=== PATIENT | female | born 1980 | race Caucasian/White ===

== ENCOUNTER → 2023-04-04 | Outpatient (CLI) | payer OTHER, SELFPAY ==
--- NOTE | 2023-04-04 07:25 | CT_ITS ---
STUDY: CTA ABDOMEN AND PELVIS WITH CONTRAST REASON FOR EXAM: Female, 43 years old. MAY-THURNER SYNDROME. History of varicose veins. RADIATION DOSAGE (If Supplied By Facility): CTDIvol = ( 15.16 ) mGy, DLP = ( 830.79 ) mGycm TECHNIQUE: Transaxial images were obtained from the dome of the diaphragm to the symphysis pubis without oral contrast. IV 100mL Isovue-370 was administered. Sagittal and coronal images were reconstructed. Individualized dose optimization techniques were used for this CT. COMPARISON: Comparison is made with prior study June 03, 2014. FINDINGS: The visualized lung bases are unremarkable. The visualized portions of the heart are within normal limits. 1 cm cyst in the inferior lateral aspect of the right lobe of the liver. Vascular coils are seen in the midportion of the right lobe of the liver. There are multiple small gallstones. There is moderate splenomegaly. Varices are seen in the region of the splenic Normal pancreas. Normal bilateral adrenal glands. Normal right kidney. Normal left kidney. Normal visualized stomach. Normal small intestine. Moderate amount of fecal material is seen in the colon. The appendix is visualized and appears normal. Normal abdominal aorta. Findings suggestive of a compression of the left common iliac vein by the left common iliac artery suggestive of May Thurner syndrome. Normal inferior vena cava. Normal retroperitoneum. Normal urinary bladder. There is a 2.4 cm cyst in the right ovary. Normal abdominal wall. Multilevel Allan zander fixation of the thoracic spine and upper lumbar vertebrae. CT/CTA Abd/Pelvis W/WO Contrast IMPRESSION: Findings suggestive of a May Thurner syndrome on the left side. Electronically Signed: Davis Sinclair MD at 12:43 EDT ,
== END | disposition home or self-care (01) ==
LOC: CT 07:23
PROVIDERS: Referring Provider Surgery Vascular Surgery; Visit Provider Surgery Vascular Surgery
DX: I87.1 Compression of vein (principal)
CPT/HCPCS: 74174; Q9967

== ENCOUNTER → 2023-07-08 | Outpatient (CLI) | payer OTHER, SELFPAY ==
[2023-07-08 07:12] LABS: Absolute Lymphocyte Count 0.84 X10^3/uL (0.83-4.51); Absolute Neutrophil Count 1.6 X10^3/uL (2.0-7.7); Basophil# 0.02 X10^3/uL; Basophil% 0.7 % (0-1); Eosinophils% 3.6 % (0-5); Hematocrit 41.7 % (37-47); Hemoglobin 13.9 g/dL (12.0-15.0); Lymphocyte # 0.84 X10^3/ul (0.83-4.51); Lymphocyte % 30.7 % (19-41); Mean Corp Hgb Conc 33.3 g/dL (32-36); Mean Corpuscular Hgb 35.8 pg (27.0-32.0); Mean Corpuscular Volume 107.5 fL (81-99); Mean Platelet Vol. 9.5 fl (6.2-12.0); Monocyte% 7.3 % (0-10); NRBC Flagged by Analyzer 0 % (0-5); Neutrophil # 1.57 X10^3/uL (2.7-7.7); Neutrophil % 57.3 % (47-70); Platelet Count 370 K/mm3 (150-450); RBC Distribution Width CV 12.3 % (11.6-14.6); RBC Distribution Width SD 48.4 fl (35.1-43.9); Red Blood Count 3.88 M/mm3 (4.2-5.4); White Blood Count 2.7 K/mm3 (4.4-11.0)
[2023-07-08 07:46] LABS: ALB/GLOB Ratio 1.2 RATIO (0.9-2.4); AST(SGOT) 16 U/L (15-37); Alanine Aminotransfer ALT/SGPT 20 U/L (13-56); Albumin, Serum 3.9 g/dL (3.2-5.0); Alkaline Phosphatase 46 U/L (45-117); Anion Gap 6 (5-15); BUN 11 mg/dL (7-18); BUN/Creat Ratio 14.2 RATIO (10-20); Chloride 109 mmol/L (98-107); Cholesterol 131 mg/dL (200); Creatinine, Serum 0.78 mg/dL (0.55-1.02); EST Glomerular Filtration Rate 86 mL/min (>60); Est Glom Filt Rate - Afr Amer 104 mL/min (>60); Globulin 3.3 g/dL (2.2-4.2); Glucose 92 mg/dL (74-106); High Density Lipoprotein 73 mg/dL; Potassium 4.2 mmol/L (3.5-5.1); Protein, Total 7.2 g/dL (6.4-8.2); Sodium Level 141 mmol/L (136-145); Thyroid Stim Hormone (TSH) 2.53 uIU/mL (0.358-3.74); Triglycerides 72 mg/dL; Very Low Density Lipoprotein 14 mg/dL (5-40)
== END | disposition home or self-care (01) ==
LOC: LAB 06:43
PROVIDERS: PCP Family Medicine; Referring Provider Internal Medicine Hematology & Oncology; Visit Provider Internal Medicine Hematology & Oncology
DX: Z00.00 Encounter for general adult medical examination without abnormal findings (principal)
CPT/HCPCS: 36415; 80053; 80061; 84443; 85025

== ENCOUNTER 2023-08-13 06:48 | Outpatient (RCR) | payer OTHER, SELFPAY ==
[2023-08-13 08:04] LABS: Absolute Lymphocyte Count 0.63 X10^3/uL (0.83-4.51); Absolute Neutrophil Count 1.4 X10^3/uL (2.0-7.7); Basophil# 0.02 X10^3/uL; Basophil% 0.9 % (0-1); Eosinophil# 0.06 X10^3/uL; Eosinophils% 2.6 % (0-5); Hemoglobin 12.9 g/dL (12.0-15.0); Lymphocyte # 0.63 X10^3/ul (0.83-4.51); Lymphocyte % 27.8 % (19-41); Mean Corp Hgb Conc 33.1 g/dL (32-36); Mean Corpuscular Hgb 35.6 pg (27.0-32.0); Mean Corpuscular Volume 107.7 fL (81-99); Mean Platelet Vol. 9.7 fl (6.2-12.0); Monocyte# 0.14 X10^3/uL; Monocyte% 6.2 % (0-10); NRBC Flagged by Analyzer 0 % (0-5); Neutrophil # 1.42 X10^3/uL (2.7-7.7); Neutrophil % 62.5 % (47-70); Platelet Count 374 K/mm3 (150-450); RBC Distribution Width CV 12.3 % (11.6-14.6); RBC Distribution Width SD 48.2 fl (35.1-43.9); Red Blood Count 3.62 M/mm3 (4.2-5.4); White Blood Count 2.3 K/mm3 (4.4-11.0)
== END 2023-08-13 18:00 | disposition home or self-care (01) ==
LOC: LAB 06:48
PROVIDERS: PCP Family Medicine; Referring Provider Internal Medicine Hematology & Oncology; Visit Provider Internal Medicine Hematology & Oncology
DX: D47.3 Essential (hemorrhagic) thrombocythemia (principal)
CPT/HCPCS: 36415; 85025

== ENCOUNTER 2024-01-08 06:38 | Outpatient (RCR) | payer OTHER, SELFPAY ==
[2024-01-08 07:25] LABS: Absolute Lymphocyte Count 0.67 X10^3/uL (0.83-4.51); Absolute Neutrophil Count 1.6 X10^3/uL (2.0-7.7); Basophil# 0.02 X10^3/uL; Basophil% 0.8 % (0-1); Eosinophil# 0.08 X10^3/uL; Eosinophils% 3.1 % (0-5); Hematocrit 40.1 % (37-47); Hemoglobin 13.2 g/dL (12.0-15.0); Lymphocyte # 0.67 X10^3/ul (0.83-4.51); Lymphocyte % 25.7 % (19-41); Mean Corp Hgb Conc 32.9 g/dL (32-36); Mean Corpuscular Hgb 34.3 pg (27.0-32.0); Mean Corpuscular Volume 104.2 fL (81-99); Mean Platelet Vol. 9.9 fl (6.2-12.0); Monocyte# 0.19 X10^3/uL; Monocyte% 7.3 % (0-10); NRBC Flagged by Analyzer 0 % (0-5); Neutrophil # 1.64 X10^3/uL (2.7-7.7); Neutrophil % 62.7 % (47-70); Platelet Count 309 K/mm3 (150-450); RBC Distribution Width CV 12.7 % (11.6-14.6); RBC Distribution Width SD 48.4 fl (35.1-43.9); Red Blood Count 3.85 M/mm3 (4.2-5.4); White Blood Count 2.6 K/mm3 (4.4-11.0)
== END 2024-01-25 01:06 | disposition home or self-care (01) ==
LOC: LAB 06:38
PROVIDERS: Referring Provider Internal Medicine Hematology & Oncology; Visit Provider Internal Medicine Hematology & Oncology
DX: D47.3 Essential (hemorrhagic) thrombocythemia (principal)
CPT/HCPCS: 36415; 85025

== ENCOUNTER → 2024-03-30 | Outpatient (CLI) | payer OTHER, SELFPAY ==
[2024-03-30 06:52] LABS: Absolute Lymphocyte Count 0.61 X10^3/uL (0.83-4.51); Basophil# 0.02 X10^3/uL; Basophil% 1.1 % (0-1); Eosinophil# 0.04 X10^3/uL; Eosinophils% 2.2 % (0-5); Hematocrit 39.2 % (37-47); Lymphocyte # 0.61 X10^3/ul (0.83-4.51); Mean Corp Hgb Conc 33.2 g/dL (32-36); Mean Corpuscular Hgb 35.2 pg (27.0-32.0); Mean Corpuscular Volume 106.2 fL (81-99); Mean Platelet Vol. 9.4 fl (6.2-12.0); Monocyte# 0.14 X10^3/uL; Monocyte% 7.6 % (0-10); NRBC Flagged by Analyzer 0 % (0-5); Neutrophil # 1.03 X10^3/uL (2.7-7.7); Neutrophil % 55.6 % (47-70); Platelet Count 280 K/mm3 (150-450); RBC Distribution Width CV 12.4 % (11.6-14.6); RBC Distribution Width SD 48.6 fl (35.1-43.9); Red Blood Count 3.69 M/mm3 (4.2-5.4); White Blood Count 1.9 K/mm3 (4.4-11.0)
[2024-03-30 07:39] LABS: ALB/GLOB Ratio 1.5 RATIO (0.9-2.4); AST(SGOT) 18 U/L (15-37); Alanine Aminotransfer ALT/SGPT 20 U/L (13-56); Alkaline Phosphatase 44 U/L (45-117); Anion Gap 7 (5-15); BUN 12 mg/dL (7-18); BUN/Creat Ratio 15.1 RATIO (10-20); Calcium,Total 9.5 mg/dL (8.5-10.1); Chloride 107 mmol/L (98-107); EST Glomerular Filtration Rate 83 mL/min (>60); Est Glom Filt Rate - Afr Amer 101 mL/min (>60); Globulin 2.7 g/dL (2.2-4.2); Glucose 95 mg/dL (74-106); Magnesium 2.1 mg/dL (1.6-2.6); Phosphorus 3.3 mg/dL (2.5-4.9); Protein, Total 6.7 g/dL (6.4-8.2); Sodium Level 138 mmol/L (136-145)
== END | disposition home or self-care (01) ==
LOC: LAB 06:35
DX: D68.00 Von Willebrand disease, unspecified (principal)
CPT/HCPCS: 36415; 80053; 82140; 83735; 84100; 85025

== ENCOUNTER 2024-05-04 06:33 | Outpatient (RCR) | payer OTHER, SELFPAY ==
[2024-05-04 07:59] LABS: Absolute Lymphocyte Count 0.54 X10^3/uL (0.83-4.51); Basophil# 0.02 X10^3/uL; Basophil% 1.1 % (0-1); Eosinophil# 0.05 X10^3/uL; Eosinophils% 2.9 % (0-5); Hematocrit 36.2 % (37-47); Lymphocyte # 0.54 X10^3/ul (0.83-4.51); Lymphocyte % 30.9 % (19-41); Mean Corp Hgb Conc 33.1 g/dL (32-36); Mean Corpuscular Hgb 34.8 pg (27.0-32.0); Mean Corpuscular Volume 104.9 fL (81-99); Monocyte# 0.15 X10^3/uL; Monocyte% 8.6 % (0-10); NRBC Flagged by Analyzer 0 % (0-5); Neutrophil # 0.98 X10^3/uL (2.7-7.7); Neutrophil % 55.9 % (47-70); POSITIVE DIFFERENTIAL YES; Platelet Count 254 K/mm3 (150-450); RBC Distribution Width CV 11.8 % (11.6-14.6); RBC Distribution Width SD 44.8 fl (35.1-43.9); Red Blood Count 3.45 M/mm3 (4.2-5.4); White Blood Count 1.8 K/mm3 (4.4-11.0)
[2024-05-04 08:05] LABS: Differential Indicated SCAN CRITERIA MET
[2024-05-04 08:36] LABS: Differential Comment SCANNED
[2024-05-04 13:41] LABS: Pathologist Review Reviewed
== END 2024-05-26 18:00 | disposition home or self-care (01) ==
LOC: LAB 06:33
PROVIDERS: Referring Provider Internal Medicine Hematology & Oncology; Visit Provider Internal Medicine Hematology & Oncology
DX: D47.3 Essential (hemorrhagic) thrombocythemia (principal)
CPT/HCPCS: 36415; 85025

== ENCOUNTER 2024-06-03 06:40 | Outpatient (RCR) | payer OTHER, SELFPAY ==
[2024-06-03 07:11] LABS: Absolute Lymphocyte Count 0.59 X10^3/uL (0.83-4.51); Absolute Neutrophil Count 1.4 X10^3/uL (2.0-7.7); Basophil# 0.01 X10^3/uL; Basophil% 0.5 % (0-1); Eosinophil# 0.05 X10^3/uL; Eosinophils% 2.3 % (0-5); Hematocrit 36.9 % (37-47); Hemoglobin 12.5 g/dL (12.0-15.0); Lymphocyte # 0.59 X10^3/ul (0.83-4.51); Lymphocyte % 26.7 % (19-41); Mean Corp Hgb Conc 33.9 g/dL (32-36); Mean Corpuscular Hgb 34.7 pg (27.0-32.0); Mean Corpuscular Volume 102.5 fL (81-99); Mean Platelet Vol. 9.6 fl (6.2-12.0); Monocyte# 0.15 X10^3/uL; Monocyte% 6.8 % (0-10); NRBC Flagged by Analyzer 0 % (0-5); Neutrophil # 1.41 X10^3/uL (2.7-7.7); Neutrophil % 63.7 % (47-70); POSITIVE DIFFERENTIAL YES; Platelet Count 279 K/mm3 (150-450); RBC Distribution Width CV 11.5 % (11.6-14.6); RBC Distribution Width SD 43.6 fl (35.1-43.9); White Blood Count 2.2 K/mm3 (4.4-11.0)
[2024-06-03 07:30] LABS: Differential Indicated SCAN CRITERIA MET
[2024-06-04 08:18] LABS: Pathologist Review Reviewed
== END 2024-06-03 18:00 | disposition home or self-care (01) ==
LOC: LAB 06:40
PROVIDERS: Referring Provider Internal Medicine Hematology & Oncology; Visit Provider Internal Medicine Hematology & Oncology
DX: D47.3 Essential (hemorrhagic) thrombocythemia (principal)
CPT/HCPCS: 36415; 85025

== ENCOUNTER 2024-06-16 14:42 | Emergency (ER) | payer OTHER, SELFPAY ==
[2024-06-16 14:42] VITALS: BP 140/73; PULSE 114; RESP 18; TEMP 36.2; O2SAT 98
[2024-06-16 14:44] VITALS: BMI 25.4
--- NOTE | 2024-06-16 15:16 | EKG12_ITS ---
Test Reason : SOB Blood Pressure : / mmHG Vent. Rate : 073 BPM Atrial Rate : 073 BPM P-R Int : 186 ms QRS Dur : 092 ms QT Int : 386 ms P-R-T Axes : 055 057 050 degrees QTc Int : 425 ms Normal sinus rhythm Possible Left atrial enlargement Borderline ECG Confirmed by ROOSEVELT LOVE, EDDY ([id number]), photographic editor JEFFREY LEGER ([id number]) on 06/18/2024 6:49:12 AM Referred By: Confirmed By:ALTAGRACIA ALBERT MD
--- NOTE | 2024-06-16 15:16 | CT_ITS ---
STUDY: CTA CHEST REASON FOR EXAM: Female, 44 years old. chest pain, high prob DVT RADIATION DOSAGE (If Supplied By Facility): Blood = ( 5.66 ) mGy, DLP = ( 192.73 ) mGycm TECHNIQUE: The examination was performed with the intravenous administration of IV 100mL Isovue-370. Post-processing of the angiographic images was performed, with multiplanar reformation and 3D reconstruction. Individualized dose optimization techniques were used for this CT. COMPARISON: None. FINDINGS: Exam limited by significant streak artifact from fixation hardware of the spine. Normal enhancement of the main pulmonary artery and right and left pulmonary arteries. Normal enhancement of the bilateral peripheral pulmonary arteries. There is no demonstrated pulmonary embolism. Normal thoracic aorta and visualized great vessels. There is no demonstrated aortic dissection. Normal heart and pericardium. Normal mediastinum. Normal hilar regions. Normal visualized trachea and bronchi. The lungs are well expanded. Normal pulmonary parenchyma. Normal pleura. Normal chest wall structures. Bilateral posterior rods of the thoracic spine. Mild residual dextroconvex scoliosis. There is moderate splenomegaly. CT/CTA Chest W/WO Contrast IMPRESSION: Limited by streak artifact from dental hardware. No definite demonstrated pulmonary embolism or arterial dissection. No evidence for acute chest disease. Electronically Signed: Vicente Rodriguez MD at 16:47 EDT ,
--- NOTE | 2024-06-16 15:19 | ED.VIS.CHEST ---
HPI History of Present Illness Chief Complaint: Shortness of Breath Informant: patient Narrative Narrative: Patient is a 44-year-old female on Xarelto because of history of DVT and with history of platelet disorder (follows with Dr. Devlin). She is presenting with right-sided chest pain. She states she started to notice it about 2 days ago. It to the right of her sternum and radiates to her back. Not really worse with movement but worse with deep inspiration. She tried Tylenol and heat with no help. She spoke with Dr. Sandoval about this and he recommend she come in to rule out a pulmonary emboli. She denies any injury or new activities that could have caused muscular pain. She notes that she was using garden leoncio to prove her irises over the weekend but does not think that would have caused this. She denies any cough. She states is very painful if she sneezes. Denies any associated rash. Denies any difficulty breathing. Denies any swelling of her legs. No other complaints or concerns at this time. [facility] Medical History May-Thurner syndrome History of DVT (deep vein thrombosis) (~2020) Home Medications ?Medication ?Instructions ?Recorded ?Last Taken ?Type hydroxyurea 500 mg capsule 500 mg PO DAILY 04/22/23 Unknown History pantoprazole 40 mg tablet,delayed 40 mg PO DAILY 04/22/23 Unknown History release prucalopride 2 mg tablet 2 mg PO DAILY 04/22/23 Unknown History (Motegrity) rivaroxaban 20 mg tablet (Xarelto) 20 mg PO DAILY 04/22/23 Unknown History Allergy/AdvReac Type Severity Reaction Status Date / Time No Known Allergies Allergy Verified 06/16/24 14:42 Family History Other Cancer Colon cancer Surgical History History of partial colectomy History of back surgery History of vascular surgery History of hernia repair Social History Smoking Status: Former smoker Smokeless tobacco user: other Electronic Cigarette Use: with nicotine alcohol intake: current alcohol intake frequency: a few times a month ROS ROS ED Constitutional Constitutional ED: Denies chills or fever(s) ENT ENT ED: Denies rhinorrhea Cardiovascular Cardiovascular: Reports as per HPI and chest pain; Denies palpitations Respiratory/Chest Respiratory/Chest: Denies cough, dyspnea or sputum Gastrointestinal Gastrointestinal: Denies nausea or vomiting Musculoskeletal Musculoskeletal: Reports back pain; Denies arthralgias Integumentary Denies rash Neurologic Neurologic: Denies headache(s), paresthesias or weakness Hematologic/Lymphatic Hematologic/Lymphatic: Reports easy bleeding and other Details: on Xarelto EXAM Physical Exam Const Vital Signs: 06/16/24 14:42 06/16/24 15:07 06/16/24 15:16 Temperature 97.2 F L Temperature Source Temporal Pulse Rate 114 H Respiratory Rate 18 Respiratory Effort Normal Respiratory Depth Normal Respiratory Pattern Normal Blood Pressure 140/73 H Blood Pressure Mean 95 Pulse Ox 98 Oxygen Delivery Method Room Air Room Air 06/16/24 16:42 Temperature Temperature Source Pulse Rate 80 Respiratory Rate 20 H Respiratory Effort Respiratory Depth Respiratory Pattern Blood Pressure 109/69 Blood Pressure Mean 82 Pulse Ox 98 Oxygen Delivery Method Room Air Positive well nourished and well developed General Appearance ED: well developed HEENT Reports moist mucous membranes Eyes PERRL Neck supple and no JVD Chest Wall inspection of chest normal and palpation of chest normal Chest: Negative for tenderness Resp normal respiratory effort and clear to auscultation bilaterally Cardio regular rate, regular rhythm and no murmurs GI non-distended Extremity normal to inspection General Extremety ED: Negative for edema General Extremity: Negative for edema Neuro oriented x3 Motor Exam: Negative for general weakness Psych mental status grossly normal Heart Score History: Slightly/Non-Suspicious ECG: Normal Age: </= 45 years Risk Factors: 1 or 2 Risk Factors Troponin: </= Normal Limit Score: 1 MDM MDM MDM Narrative Medical decision making narrative: Patient evaluated for pleuritic right-sided chest pain that radiates to her back. She appears nontoxic no acute distress. She is mildly hypertensive and tachycardic upon arrival however this resolved in the ER without any intervention. Differential includes pneumothorax, pleurisy, DVT, pericarditis, endocarditis and muscle skeletal chest wall pain. Workup including CT of the chest as patient is already anticoagulated,, EKG, troponin, CBC and CMP are obtained. Patient has chronic leukopenia but otherwise labs grossly normal. High sensitive troponin is less than 3 making of acute cardiac cause her symptoms much less likely. EKG does not show any signs of ischemia or other arrhythmia/abnormalities. CT of the chest does not show any acute process however somewhat limited secondary to streak artifact from spine hardware. At this time I feel the patient can comfortably discharged home. She is offered a prescription for pain control but declines. She will try Lidoderm patches and Tylenol at home. Is given return precautions. Is discharged home in stable condition. Lab Data Attestation: I reviewed the patient's lab results. Labs: Laboratory Results - last 24 hr 06/16/24 15:20 WBC 2.3 L RBC 3.73 L Hgb 12.8 Hct 37.8 MCV 101.3 H MCH 34.3 H MCHC 33.9 RDW Std Deviation 43.1 RDW Coeff of Venu 11.7 Plt Count 381 MPV 9.7 Immature Gran % (Auto) 0.000 Neut % (Auto) 63.0 Lymph % (Auto) 27.6 [place] % (Auto) 6.7 Eos % (Auto) 1.8 Baso % (Auto) 0.9 Absolute Neuts (auto) 1.4 L Absolute Lymphs (auto) 0.62 L Nucleated RBC % 0 PT 16.1 H INR 1.3 APTT 33.5 Sodium 141 Potassium 3.6 Chloride 110 H Carbon Dioxide 27.0 Anion Gap 4 L BUN 10 Creatinine 0.88 Est GFR (MDRD) Af Amer 89 Est GFR (MDRD) Non-Af 74 BUN/Creatinine Ratio 11.3 Glucose 169 H Calcium 8.7 Total Bilirubin 0.60 Direct Bilirubin 0.20 AST 14 L ALT 19 Alkaline Phosphatase 44 L Troponin I High Sens < 3 L Total Protein 6.5 Albumin 3.6 Globulin 2.9 Radiography Diagnostic Testing: Clinical Impression(s) from Imaging Studies Chest CTA 06/16/24 15:16 IMPRESSION: Limited by streak artifact from dental hardware. No definite demonstrated pulmonary embolism or arterial dissection. No evidence for acute chest disease. Electronically Signed: Vicente Rodriguez MD at 16:47 EDT , Rhythm Strip Rhythm Strip: Sinus Rhythm Rate: 73 Ectopy: None EKG Initial EKG: Attestation: I personally reviewed and interpreted this EKG as follows: Interpretation: Sinus Rhythm Comments: Normal sinus rhythm at a rate of 73 bpm Normal axis Normal intervals Normal ST segments Discharge Plan Triage Chief Complaint: Shortness of Breath ED Provider: Awilda Cordova Dx/Rx/DC Orders Clinical Impression: Chest pain, pleuritic Instructions: ED Chest Pain, Noncardiac Prescriptions: No Action Xarelto 20 mg tablet 20 mg PO DAILY Patient Comments: TAKE ONE TABLET BY MOUTH EVERY DAY WITH dinner hydroxyurea 500 mg capsule 500 mg PO DAILY Motegrity 2 mg tablet 2 mg PO DAILY Patient Comments: TAKE ONE TABLET BY MOUTH EVERY DAY pantoprazole 40 mg tablet,delayed release (DR/EC) 40 mg PO DAILY Primary Care Provider: Care Physician,No Primary Referrals: Care Physician,No Primary [Primary Care Provider] - Activity Restrictions/Additional Instructions: The exact cause your symptoms is not clear however at this time you do not look to have any severe process going on. Your CTA of the chest did not show any pulmonary emboli or other acute abnormalities. Please follow-up as needed with Dr. Sandoval and [facility] doctor especially if the chest pain persist. I recommend Tylenol and Lidoderm patches for the pain. Please return to the emergency room you have a progression worsening your symptoms or further concerns Print Language: Portuguese Disposition Disposition: Home, Self Care
--- NOTE | 2024-06-16 15:23 | NURSING ---
NO OLD EKG
[2024-06-16] MEDS: Aspirin 81 MG TAB.CHEW 324 MG PO (15:25)
[2024-06-16 15:32] LABS: Absolute Lymphocyte Count 0.62 X10^3/uL (0.83-4.51); Absolute Neutrophil Count 1.4 X10^3/uL (2.0-7.7); Basophil# 0.02 X10^3/uL; Basophil% 0.9 % (0-1); Eosinophil# 0.04 X10^3/uL; Eosinophils% 1.8 % (0-5); Hematocrit 37.8 % (37-47); Hemoglobin 12.8 g/dL (12.0-15.0); Lymphocyte # 0.62 X10^3/ul (0.83-4.51); Lymphocyte % 27.6 % (19-41); Mean Corp Hgb Conc 33.9 g/dL (32-36); Mean Corpuscular Hgb 34.3 pg (27.0-32.0); Mean Corpuscular Volume 101.3 fL (81-99); Mean Platelet Vol. 9.7 fl (6.2-12.0); Monocyte# 0.15 X10^3/uL; Monocyte% 6.7 % (0-10); NRBC Flagged by Analyzer 0 % (0-5); Neutrophil # 1.42 X10^3/uL (2.7-7.7); Platelet Count 381 K/mm3 (150-450); RBC Distribution Width CV 11.7 % (11.6-14.6); RBC Distribution Width SD 43.1 fl (35.1-43.9); Red Blood Count 3.73 M/mm3 (4.2-5.4); White Blood Count 2.3 K/mm3 (4.4-11.0)
[2024-06-16 15:49] LABS: International Normalized Ratio 1.3; Prothrombin Time (Protime)PT. 16.1 SECONDS (11.7-14.9)
[2024-06-16 15:50] LABS: Partial Thromboplast Time 33.5 Seconds (24.1-36.2)
[2024-06-16 16:05] LABS: AST(SGOT) 14 U/L (15-37); Alanine Aminotransfer ALT/SGPT 19 U/L (13-56); Albumin, Serum 3.6 g/dL (3.2-5.0); Alkaline Phosphatase 44 U/L (45-117); Anion Gap 4 (5-15); BUN 10 mg/dL (7-18); BUN/Creat Ratio 11.3 RATIO (10-20); Calcium,Total 8.7 mg/dL (8.5-10.1); Chloride 110 mmol/L (98-107); Creatinine, Serum 0.88 mg/dL (0.55-1.02); EST Glomerular Filtration Rate 74 mL/min (>60); Est Glom Filt Rate - Afr Amer 89 mL/min (>60); Globulin 2.9 g/dL (2.2-4.2); Glucose 169 mg/dL (74-106); Potassium 3.6 mmol/L (3.5-5.1); Protein, Total 6.5 g/dL (6.4-8.2); Sodium Level 141 mmol/L (136-145); Troponin-I HS (w/2H Reflex) < 3 pg/mL (3.0-54.0)
[2024-06-16 16:42] VITALS: BP 109/69; PULSE 80; RESP 20; O2SAT 98
[2024-06-16 17:24] LABS: Reflex Troponin-HS? (from REC) Y
[2024-06-16 17:51] VITALS: BP 121/87; PULSE 73; RESP 16; TEMP 36.6; O2SAT 98
[2024-06-16 17:52] LABS: Troponin-I HS < 3 pg/mL (3.0-54.0)
== END 2024-06-16 17:56 | disposition home or self-care (01) ==
PROVIDERS: Emergency Provider Emergency Medicine; Visit Provider Emergency Medicine
DX: R07.81 Pleurodynia (principal); R06.02 Shortness of breath; M54.9 Dorsalgia, unspecified; D72.819 Decreased white blood cell count, unspecified; Z79.01 Long term (current) use of anticoagulants; Z79.899 Other long term (current) drug therapy; Z86.718 Personal history of other venous thrombosis and embolism; Z87.891 Personal history of nicotine dependence
CPT/HCPCS: 71275; 80048; 80076; 84484; 85025; 85610; 85730; 93005; 99283; Q9967; A4216